=== PATIENT | female | born 1955 | race Caucasian/White ===

== ENCOUNTER 2021-05-24 16:53 | Observation (INO) ==
[2021-05-24] MEDS ORDERED: *HR* Metoprolol 5 MG/5 ML VIAL IVP ONE (17:07)
[2021-05-24] MEDS ORDERED: 0.9 % Sodium Chloride 1,000 ML IVC ONE (17:07)
[2021-05-24 17:50] LABS: Basophils % 0.3 %; Eosinophils % 0.5 %; Hematocrit 37.5 % (35.3-44.9); Hemoglobin 13.2 g/dL (11.5-15.4); Immature Granulocytes % 0.2 % (0-4); Lymphocytes # 1.3 K/mcL (0.6-4.6); Lymphocytes % 22.3 %; Mean Corpuscular HGB Conc 35.2 g/dL (31.6-35.5); Mean Corpuscular Hemoglobin 33.2 pg (28.0-33.3); Mean Corpuscular Volume 94.5 fL (83.0-100.0); Mean Platelet Volume 9.2 fL (9.4-12.4); Monocytes # 0.7 K/mcL (0.0-1.3); Neutrophils # 3.7 K/mcL (1.6-8.9); Platelet Count 204 K/mcL (140-400); Red Blood Count 3.97 M/mcL (3.82-4.97); Red Cell Distribution Width 11.7 % (11.5-14.5); Segmented Neutrophils % 64.7 %; White Blood Count 5.7 K/mcL (4.3-11.1)
[2021-05-24] MEDS ORDERED: Amiodarone Premix 360 MG/200 ML BAG IVC ONE (17:52)
[2021-05-24 17:57] LABS: Prothrombin Time 11.1 Seconds (9.4-12.1)
[2021-05-24 18:23] LABS: BUN/Creatinine Ratio 19 (6-26); Blood Urea Nitrogen 15 mg/dL (8-23); Calcium 8.9 mg/dL (8.6-10.3); Carbon Dioxide 21 mEq/L (23-29); Chloride 100 mEq/L (98-107); Glucose 126 mg/dL (70-105); Magnesium 1.6 mg/dL (1.6-2.6); Osmolality,Calculated 286 (280-300); Potassium 3.4 mEq/L (3.5-5.1); Sodium 137 mEq/L (136-145); eGFR For African Americans > 60 (> 60); eGFR For Non-African Americans > 60 (> 60)
[2021-05-24 18:25] LABS: Troponin I < 0.03 ng/mL (< 0.04)
[2021-05-24] MEDS ORDERED: Magnesium Sulfate 1 GM/102 ML PIGGYBACK IVPB ONE (18:38)
[2021-05-24 18:39] LABS: Thyroid Stimulating Hormone 0.692 mcIU/mL (0.340-5.600)
[2021-05-24] MEDS ORDERED: *HR* Heparin 5,000 UNIT/ML VIAL IVP PRN ×2 (18:48)
[2021-05-24] MEDS ORDERED: *HR* Heparin 5,000 UNIT/ML VIAL IVP ONE (18:48)
[2021-05-24] MEDS ORDERED: Heparin 25,000 UNIT/250 ML 25,000 UNIT/250 ML IV.SOLN IVC SCH (19:00)
[2021-05-24] MEDS ORDERED: *HR* Heparin 5,000 UNIT/ML VIAL ONE (19:19)
[2021-05-24] MEDS ORDERED: Melatonin 3 MG TABLET PO PRN (20:28)
[2021-05-24] MEDS ORDERED: Ondansetron ODT 4 MG TAB.RAPDIS SL PRN (20:28)
[2021-05-24] MEDS ORDERED: Naloxone 0.4 MG/ML INJ IVP PRN (20:28)
[2021-05-24] MEDS ORDERED: Metoprolol XL (24 HR) Succ 25 MG TAB.ER.24H PO SCH (21:00)
[2021-05-24] MEDS ORDERED: Perflutren Lipid Microsphere 1.3 ML in 0.9 % Sodium Chloride 8.7 ML IVP PRN (22:28)
[2021-05-24] MEDS ORDERED: DilTIAZem 50 MG/50 ML IV.SOLN IVC SCH (22:45)
[2021-05-24 22:46] LABS: Estimated Average Glucose 91 mg/dl; Hemoglobin A1C 4.8 %
[2021-05-24 23:07] LABS: Albumin 4.3 g/dL (3.5-5.7); Albumin/Globulin Ratio 1.4 (1.1-2.2); Bilirubin,Direct 0.1 mg/dL (0.0-0.2); Bilirubin,Indirect 0.4 mg/dL (0.0-1.0); Bilirubin,Total 0.5 mg/dL (0.3-1.0); Chol/HDL Ratio 1.8 (0-4.9); Globulin 3.1 g/dL (2.4-3.5); Phosphorous 3.1 mg/dL (2.7-4.5); Total Protein 7.4 g/dL (6.4-8.9)
[2021-05-25 01:46] LABS: Basophils % 0.3 %; Eosinophils # 0.1 K/mcL (0.0-0.6); Eosinophils % 0.7 %; Hematocrit 37.5 % (35.3-44.9); Hemoglobin 13.2 g/dL (11.5-15.4); Immature Granulocytes % 0.4 % (0-4); Lymphocytes # 1.9 K/mcL (0.6-4.6); Lymphocytes % 27.4 %; Mean Corpuscular HGB Conc 35.2 g/dL (31.6-35.5); Mean Corpuscular Hemoglobin 33.3 pg (28.0-33.3); Mean Corpuscular Volume 94.7 fL (83.0-100.0); Mean Platelet Volume 9.3 fL (9.4-12.4); Monocytes % 13.7 %; Platelet Count 185 K/mcL (140-400); Red Blood Count 3.96 M/mcL (3.82-4.97); Red Cell Distribution Width 11.9 % (11.5-14.5); Segmented Neutrophils % 57.5 %; White Blood Count 6.9 K/mcL (4.3-11.1)
[2021-05-25 02:04] LABS: BUN/Creatinine Ratio 21 (6-26); Blood Urea Nitrogen 15 mg/dL (8-23); Calcium 8.5 mg/dL (8.6-10.3); Carbon Dioxide 26 mEq/L (23-29); Chloride 101 mEq/L (98-107); Glucose 87 mg/dL (70-105); Osmolality,Calculated 286 (280-300); Sodium 138 mEq/L (136-145); eGFR For African Americans > 60 (> 60); eGFR For Non-African Americans > 60 (> 60)
[2021-05-25] MEDS ORDERED: *HR* Promethazine 25 MG/ML VIAL IM PRN (03:09)
[2021-05-25 03:38] LABS: Phosphorous 2.9 mg/dL (2.7-4.5)
[2021-05-25 08:02] VITALS: O2SAT 100
[2021-05-25] MEDS ORDERED: Metoprolol XL (24 HR) Succ 25 MG TAB.ER.24H PO SCH (09:00)
[2021-05-25] MEDS: Ibuprofen 400 MG TABLET PO PRN ×2 (09:16)
[2021-05-25] MEDS ORDERED: amLODIPine 5 MG TABLET PO SCH (10:00)
[2021-05-25] MEDS ORDERED: Metoprolol XL (24 HR) Succ 25 MG TAB.ER.24H PO ONE (10:45)
[2021-05-25 11:33] VITALS: BP 136/71; TEMP 98.2
[2021-05-25 13:15] VITALS: PULSE 63
[2021-05-26] MEDS ORDERED: Metoprolol XL (24 HR) Succ 25 MG TAB.ER.24H PO SCH (09:00)
== END 2021-05-25 16:45 | disposition home or self-care (01) ==
LOC: EMEROOARM 16:53 → 2NNU 16:53 → SUATTDRO 19:39 → 2NNU 20:00
PROVIDERS: ADMIT Internal Medicine; ATTEND Internal Medicine

== ENCOUNTER 2022-02-25 05:52 | Inpatient (IN) ==
[2022-02-25] MEDS ORDERED: CeFAZolin Syr 2,000MG/20 ML 2,000 MG/20 ML SYRINGE IVPB ONE (06:39)
[2022-02-25] MEDS ORDERED: Ringers Solution, Lactated 1,000 ML IVC SCH (06:45)
[2022-02-25] MEDS ORDERED: Famotidine 20 MG/2 ML VIAL IVP ONE (07:00)
[2022-02-25] MEDS ORDERED: tiZANidine 4 MG TABLET PO ONE (07:00)
[2022-02-25] MEDS ORDERED: Gabapentin 300 MG CAPSULE PO ONE (07:00)
[2022-02-25] MEDS ORDERED: *HR* OxyCODONE Immed Rel 5 MG TABLET PO PRN (07:00)
[2022-02-25] MEDS ORDERED: *HR* Rocuronium Bromide 50 MG/5 ML VIAL ONE (07:15)
[2022-02-25] MEDS ORDERED: Lidocaine -MPF 2% 5 ML VIAL ONE (07:15)
[2022-02-25] MEDS ORDERED: *HR* Succinylcholine 200 MG/10 ML VIAL IVP ONE (07:15)
[2022-02-25] MEDS ORDERED: Lidocaine HCL 4 ML Topical Solution (Laryng-O-Jet Kit Sterile Pak) TP ONE (07:15)
[2022-02-25] MEDS ORDERED: *HR* Remifentanil 2 MG VIAL IVP ONE (07:16)
[2022-02-25] MEDS ORDERED: *HR* Midazolam HCl 2 MG/2 ML VIAL ONE (07:16)
[2022-02-25] MEDS ORDERED: Promethazine 6.25 MG in Water for inj. (sterile) 20 ML IVPB PRN (07:16)
[2022-02-25] MEDS ORDERED: Ondansetron 4 MG/2 ML VIAL IVP PRN ×2 (07:16→13:37)
[2022-02-25] MEDS ORDERED: *HR* FentaNYL (PF) 100 MCG/2 ML VIAL IVP PRN (07:16)
[2022-02-25] MEDS ORDERED: *HR* Propofol 200 MG/20 ML VIAL IVP ONE ×3 (07:16→10:41)
[2022-02-25] MEDS ORDERED: *HR* HYDROmorphone PF 0.5 MG/0.5 ML SYRINGE IVP PRN (07:16)
[2022-02-25] MEDS ORDERED: *HR* Phenylephrine 10 MG/ML VIAL ONE (07:26)
[2022-02-25] MEDS ORDERED: Bupivacaine/EPI 1:200k 0.25% 50 ML VIAL ONE (07:30)
[2022-02-25] MEDS ORDERED: Vancomycin 1,000 MG VIAL ONE (07:31)
[2022-02-25] MEDS ORDERED: *HR* Vasopressin 20 UNIT/ML VIAL ONE (07:46)
[2022-02-25] MEDS ORDERED: dexmedeTOMIDine in 0.9 % NaCL 80 MCG/20 ML MLS ONE (07:46)
[2022-02-25] MEDS ORDERED: *HR* HYDROMORPHONE 2 MG/ML VIAL ONE (08:29)
[2022-02-25] MEDS ORDERED: Sugammadex Sodium 200 MG/2 ML VIAL IV ONE (10:49)
[2022-02-25] MEDS ORDERED: Ibuprofen 400 MG TABLET PO PRN (13:37)
[2022-02-25] MEDS ORDERED: Naloxone 0.4 MG/ML INJ IVP PRN (13:37)
[2022-02-25] MEDS ORDERED: Furosemide 20 MG TABLET PO PRN (13:37)
[2022-02-25] MEDS: CeFAZolin 2 GM/120 ML BAG IVPB SCH (16:59)
[2022-02-25] MEDS: Metoprolol XL (24 HR) Succ 50 MG TAB.ER.24H PO SCH (20:22)
[2022-02-26] MEDS: CeFAZolin 2 GM/120 ML BAG IVPB SCH (00:20)
[2022-02-26] MEDS: Multivit/Ca/Min/Fe/FA 1 TAB TABLET PO SCH (08:42)
[2022-02-26] MEDS: Metoprolol XL (24 HR) Succ 50 MG TAB.ER.24H PO SCH ×2 (08:42→20:04)
[2022-02-26] MEDS: Mag Hydrox/Al Hydrox/Simeth 30 ML UDC PO PRN ×2 (08:42→20:05)
[2022-02-26] MEDS: Vitamin B Complex/Vit C/Vit E 1 EACH TABLET PO SCH (08:49)
[2022-02-26] MEDS: Ondansetron ODT 4 MG TAB.RAPDIS SL PRN (15:01)
[2022-02-26] MEDS: tiZANidine 4 MG TABLET PO PRN (20:04)
[2022-02-27] MEDS: tiZANidine 4 MG TABLET PO PRN (05:16)
[2022-02-27] MEDS: Vitamin B Complex/Vit C/Vit E 1 EACH TABLET PO SCH (10:01)
[2022-02-27] MEDS: Multivit/Ca/Min/Fe/FA 1 TAB TABLET PO SCH (10:03)
[2022-02-27] MEDS: Metoprolol XL (24 HR) Succ 50 MG TAB.ER.24H PO SCH ×2 (10:05→19:40)
[2022-02-27] MEDS ORDERED: Sennosides/Docusate Sodium TABLET PO PRN (10:33)
[2022-02-27] MEDS: *HR* OxyCODONE Immed Rel 5 MG TABLET PO PRN ×2 (13:11→19:40)
[2022-02-27] MEDS: Ondansetron ODT 4 MG TAB.RAPDIS SL PRN (19:40)
[2022-02-27] MEDS: Mag Hydrox/Al Hydrox/Simeth 30 ML UDC PO PRN (22:45)
[2022-02-27] MEDS: *HR* Heparin 5,000 UNIT/ML VIAL SQ SCH (23:17)
[2022-02-28] MEDS: *HR* OxyCODONE Immed Rel 5 MG TABLET PO PRN (01:48)
[2022-02-28] MEDS: Ondansetron ODT 4 MG TAB.RAPDIS SL PRN (03:47)
[2022-02-28] MEDS ORDERED: *HR* Labetalol 20 MG/4 ML SYRINGE IVP ONE (04:04)
[2022-02-28] MEDS: *HR* Heparin 5,000 UNIT/ML VIAL SQ SCH ×3 (05:33→21:49)
[2022-02-28] MEDS: Metoprolol XL (24 HR) Succ 50 MG TAB.ER.24H PO SCH (09:16)
[2022-02-28 10:56] LABS: BUN/Creatinine Ratio 20 (6-26); Basophils % 0.1 %; Blood Urea Nitrogen 11 mg/dL (8-23); Calcium 8.5 mg/dL (8.6-10.3); Carbon Dioxide 28 mEq/L (23-29); Chloride 90 mEq/L (98-107); Glucose 110 mg/dL (70-105); Hematocrit 35.7 % (35.3-44.9); Hemoglobin 12.6 g/dL (11.5-15.4); Immature Granulocytes % 0.9 % (0-4); Lymphocytes # 0.9 K/mcL (0.6-4.6); Lymphocytes % 7.2 %; Mean Corpuscular HGB Conc 35.3 g/dL (31.6-35.5); Mean Corpuscular Hemoglobin 33.5 pg (28.0-33.3); Mean Corpuscular Volume 94.9 fL (83.0-100.0); Mean Platelet Volume 10.2 fL (9.4-12.4); Monocytes # 1.3 K/mcL (0.0-1.3); Monocytes % 10.2 %; Neutrophils # 10.6 K/mcL (1.6-8.9); Osmolality,Calculated 260 (280-300); Phosphorous 2.3 mg/dL (2.7-4.5); Platelet Count 165 K/mcL (140-400); Potassium 3.2 mEq/L (3.5-5.1); Red Blood Count 3.76 M/mcL (3.82-4.97); Segmented Neutrophils % 81.6 %; Sodium 125 mEq/L (136-145)
[2022-02-28 11:09] LABS: Thyroid Stimulating Hormone 0.812 mcIU/mL (0.340-5.600)
[2022-02-28] MEDS ORDERED: 0.9 % Sodium Chloride 1,000 ML IVC SCH ×2 (11:15→18:30)
[2022-02-28 14:53] LABS: Bacteria,Urine Few per hpf (None-Few); Bilirubin,Urine Negative (Negative); Blood,Urine Negative (Negative); Clarity,Urine Clear (Clear); Color,Urine Light-Yellow (Yellow); Glucose,Urine (UA) Normal (Normal); Ketones,Urine Trace mg/dL (Negative); Leukocyte Esterase,Urine Negative (Negative); Nitrite,Urine Negative (Negative); Protein,Urine 30 mg/dL (Neg-Trace); RBC,Urine 0-3 per hpf (0-3); Specific Gravity,Urine 1.011 (1.010-1.025); Squamous Epithelial Cell,Urine Few per hpf (None-Few); Urobilinogen,Urine Normal (Normal); WBC,Urine 0-3 per hpf (0-3)
[2022-02-28] MEDS: Multivit/Ca/Min/Fe/FA 1 TAB TABLET PO SCH (15:20)
[2022-02-28] MEDS: Vitamin B Complex/Vit C/Vit E 1 EACH TABLET PO SCH (15:21)
[2022-02-28 17:17] LABS: BUN/Creatinine Ratio 21 (6-26); Blood Urea Nitrogen 12 mg/dL (8-23); Calcium 8.9 mg/dL (8.6-10.3); Carbon Dioxide 29 mEq/L (23-29); Chloride 89 mEq/L (98-107); Glucose 118 mg/dL (70-105); Osmolality,Calculated 261 (280-300); Potassium 3.1 mEq/L (3.5-5.1); Sodium 125 mEq/L (136-145)
[2022-03-01 00:42] LABS: Hematocrit 35.3 % (35.3-44.9); Hemoglobin 12.7 g/dL (11.5-15.4); Immature Granulocytes % 0.5 % (0-4); Lymphocytes # 0.9 K/mcL (0.6-4.6); Mean Corpuscular Hemoglobin 33.7 pg (28.0-33.3); Mean Corpuscular Volume 93.6 fL (83.0-100.0); Mean Platelet Volume 9.4 fL (9.4-12.4); Monocytes # 1.2 K/mcL (0.0-1.3); Monocytes % 10.9 %; Neutrophils # 8.9 K/mcL (1.6-8.9); Platelet Count 168 K/mcL (140-400); Red Blood Count 3.77 M/mcL (3.82-4.97); Red Cell Distribution Width 11.7 % (11.5-14.5); Segmented Neutrophils % 80.6 %
[2022-03-01 01:02] LABS: BUN/Creatinine Ratio 26 (6-26); Blood Urea Nitrogen 12 mg/dL (8-23); Calcium 8.4 mg/dL (8.6-10.3); Carbon Dioxide 28 mEq/L (23-29); Chloride 91 mEq/L (98-107); Glucose 104 mg/dL (70-105); Osmolality,Calculated 266 (280-300); Potassium 2.9 mEq/L (3.5-5.1); Sodium 128 mEq/L (136-145)
[2022-03-01] MEDS: *HR* Metoprolol 5 MG/5 ML VIAL IVP SCH ×3 (01:02→13:51)
[2022-03-01] MEDS: 0.9 % Sodium Chloride w KCl 20 MEQ/1,000 ML MLS IVC SCH ×2 (01:25→15:04)
[2022-03-01] MEDS: *HR* Heparin 5,000 UNIT/ML VIAL SQ SCH ×3 (06:11→20:32)
[2022-03-01 07:13] LABS: BUN/Creatinine Ratio 23 (6-26); Blood Urea Nitrogen 12 mg/dL (8-23); Calcium 8.6 mg/dL (8.6-10.3); Carbon Dioxide 27 mEq/L (23-29); Chloride 91 mEq/L (98-107); Glucose 95 mg/dL (70-105); Osmolality,Calculated 266 (280-300); Potassium 3.4 mEq/L (3.5-5.1); Sodium 128 mEq/L (136-145)
[2022-03-01] MEDS: Multivit/Ca/Min/Fe/FA 1 TAB TABLET PO SCH (08:32)
[2022-03-01] MEDS: Metoclopramide 10 MG/2 ML VIAL IVP SCH ×3 (08:35→20:32)
[2022-03-01] MEDS: tiZANidine 4 MG TABLET PO PRN (14:05)
[2022-03-01] MEDS ORDERED: *HR* Metoprolol 5 MG/5 ML VIAL IVP PRN (14:26)
[2022-03-02] MEDS: *HR* Metoprolol 5 MG/5 ML VIAL IVP PRN ×2 (01:39→06:33)
[2022-03-02] MEDS: Metoclopramide 10 MG/2 ML VIAL IVP SCH ×2 (04:33→08:42)
[2022-03-02] MEDS: 0.9 % Sodium Chloride w KCl 20 MEQ/1,000 ML MLS IVC SCH (04:33)
[2022-03-02] MEDS: *HR* Heparin 5,000 UNIT/ML VIAL SQ SCH ×2 (06:14→14:06)
[2022-03-02] MEDS: Multivit/Ca/Min/Fe/FA 1 TAB TABLET PO SCH (08:45)
[2022-03-02] MEDS ORDERED: lisinopriL 20 MG TABLET PO SCH (09:00)
[2022-03-02] MEDS ORDERED: *HR* Labetalol 20 MG/4 ML SYRINGE IVP ONE (09:02)
[2022-03-02] MEDS ORDERED: Metoprolol XL (24 HR) Succ 50 MG TAB.ER.24H PO SCH (09:15)
[2022-03-02 09:30] VITALS: O2SAT 96
[2022-03-02 09:39] LABS: Basophils % 0.2 %; Eosinophils # 0.1 K/mcL (0.0-0.6); Eosinophils % 0.8 %; Hematocrit 30.9 % (35.3-44.9); Immature Granulocytes % 0.3 % (0-4); Lymphocytes % 17.4 %; Mean Corpuscular HGB Conc 34.6 g/dL (31.6-35.5); Mean Corpuscular Volume 95.4 fL (83.0-100.0); Monocytes % 16.4 %; Neutrophils # 3.9 K/mcL (1.6-8.9); Platelet Count 170 K/mcL (140-400); Red Blood Count 3.24 M/mcL (3.82-4.97); Red Cell Distribution Width 11.5 % (11.5-14.5); Segmented Neutrophils % 64.9 %; White Blood Count 5.9 K/mcL (4.3-11.1)
[2022-03-02 09:40] LABS: Hemoglobin 10.7 g/dL (11.5-15.4)
[2022-03-02 10:53] LABS: BUN/Creatinine Ratio 29 (6-26); Blood Urea Nitrogen 11 mg/dL (8-23); Calcium 6.6 mg/dL (8.6-10.3); Carbon Dioxide 24 mEq/L (23-29); Chloride 106 mEq/L (98-107); Glucose 91 mg/dL (70-105); Magnesium 1.4 mg/dL (1.6-2.6); Osmolality,Calculated 269 (280-300); Potassium 5.9 mEq/L (3.5-5.1); Sodium 130 mEq/L (136-145)
[2022-03-02 11:02] VITALS: PULSE 79; TEMP 99.2
[2022-03-02] MEDS ORDERED: SODIUM ZIRCONIUM CYCLOSILICATE 5 GM POWD.PACK PO ONE (12:57)
[2022-03-02 14:11] VITALS: BP 181/85
[2022-03-02] MEDS: tiZANidine 4 MG TABLET PO PRN (14:14)
[2022-03-02 15:28] LABS: Influenza A PCR Negative (Negative); Influenza B PCR Negative (Negative); Resp. Syncytial Virus PCR Negative (Negative)
[2022-03-02 15:43] LABS: SARS-CoV-2 by PCR (In House) Negative (Negative)
[2022-03-02] MEDS ORDERED: hydrALAZINE 25 MG TABLET PO SCH (16:00)
[2022-03-02] MEDS ORDERED: Magnesium Oxide 400 MG TABLET PO SCH (21:00)
== END 2022-03-02 17:30 | DRG 516 ==
LOC: SDCAOSI 05:52 → 4WAOSI 12:58
PROVIDERS: ADMIT Student in an Organized Health Care Education/Training Program; ATTEND Student in an Organized Health Care Education/Training Program